=== PATIENT | male | born 1995 | race Caucasian/White ===

== ENCOUNTER 2022-02-06 10:17 | Inpatient (IN) | payer BC ==
[~2022-02-06] VITALS: Ht 165.1 cm; Wt 81.6 kg
[2022-02-06] MEDS ORDERED: LORazepam 2 MG/ML VIAL ONE (10:23)
[2022-02-06] MEDS ORDERED: HALOPERIDOL LACTATE 5 MG/ML VIAL ONE (10:24)
[2022-02-06] MEDS ORDERED: DIPHENHYDRAMINE INJ 50 MG/ML VIAL ONE (10:24)
--- NOTE | 2022-02-06 10:30 | NUR ---
Pt triaged and placed in rm 4 for eval. Report to Angel MENDIOLA.
[2022-02-06 10:36] VITALS: BP_SYST 110
[2022-02-06] MEDS ORDERED: NACL 0.9% 1,000 ML IV ONE ×2 (10:45→13:00)
[2022-02-06] MEDS ORDERED: LORazepam 2 MG/ML VIAL IM ONE (11:00)
--- NOTE | 2022-02-06 11:09 | NUR ---
PT WAS B/B AMBULANCE WITH [facility] VOILATED, AGRESSIVE. FIGHTING FOR THE MEDICAL STAFF. 4 POINT HARD RESTRAINT ON. DR. VELIZ EXAMINED PT. FIRST DOSE OF ATIVAN 2MG AND HALDOL 5MG AND BENADRYL 50MG PT WAS VIOLATING STILL. SECOND DOSE GIVEN. WORKED LITTLE BIT. KETAMINE 100MG IM ORDERED AND GIVEN AGAIN.
[2022-02-06] MEDS ORDERED: KETAMINE HCL 500 MG/10 ML VIAL IM ONE (11:15)
[2022-02-06] MEDS ORDERED: HALOPERIDOL LACTATE 5 MG/ML VIAL IM ONE (11:15)
[2022-02-06] MEDS ORDERED: KETAMINE HCL 500 MG/10 ML VIAL ONE (11:16)
--- NOTE | 2022-02-06 11:39 | NUR ---
PT FINALLY BECAME QUIETED DOWN AFTER KETAMINE GIVEN IM INJECTION. SL 20G ESTABLISHED ON LEFT FOOT. URINE WAS CAHTHED WELL.
[2022-02-06 11:40] LABS: BASOPHILS # (AUTO) 0.1 K/uL (0.0-0.2); BASOPHILS % (AUTO) 0.4 % (0.0-2.0); HEMOGLOBIN 14.7 g/dL (14.0-18.0); LYMPHOCYTES # (AUTO) 0.9 K/uL (1.0-5.5); LYMPHOCYTES % (AUTO) 5.4 % (20.5-51.5); MEAN CORPUSCULAR HEMOGLOBIN 28 pg (27-31); MEAN CORPUSCULAR HGB CONC 33 % (32-36); MEAN CORPUSCULAR VOLUME 84 fL (79.0-98.0); MONOCYTES # (AUTO) 1.6 K/uL (0.0-1.0); MONOCYTES % (AUTO) 9.6 % (1.7-9.3); NEUTROPHILS # (AUTO) 13.7 K/uL (1.8-7.7); NEUTROPHILS % (AUTO) 84.6 % (40.0-70.0); PLATELET COUNT (AUTO) 154 K/uL (130-430); RED BLOOD CELL COUNT(AUTO) 5.25 MIL/uL (4.2-6.2); RED CELL DISTRIBUTION WIDTH 12.9 % (9.0-15.0); WHITE BLOOD COUNT (AUTO) 16.2 K/uL (4.8-10.8)
[2022-02-06 11:46] LABS: ANION GAP 19 (5-15); CALCIUM 9.3 mg/dL (8.4-11.0); CHLORIDE 109 mmol/L (98-107); GLUCOSE 98 mg/dL (70-99); POTASSIUM 3.2 mmol/L (3.5-5.1); SODIUM SERUM 148 mmol/L (136-145); UREA NITROGEN, BLOOD 26 mg/dL (8-21)
[2022-02-06 11:49] LABS: GFR AFRICAN AMERICAN 64 mL/min (>90)
[2022-02-06 12:02] LABS: BILIRUBIN,URINE 1+ (NEGATIVE); BLOOD, URINE NEGATIVE (NEGATIVE); COLOR,URINE YELLOW (YELLOW); GLUCOSE,URINE NEGATIVE (NEGATIVE); KETONES,URINE 3+ (NEGATIVE); LEUKOCYTE ESTERASE ,URINE NEGATIVE (NEGATIVE); NITRITE, URINE NEGATIVE (NEGATIVE); PROTEIN URINE 2+ (NEGATIVE)
[2022-02-06 12:03] LABS: ALANINE AMINOTRANSFERASE 43 U/L (12-78); ALBUMIN 4.7 g/dL (3.4-4.8); ASPARTATE AMINOTRANSFERASE 53 U/L (10-37); TOTAL BILIRUBIN 1.5 mg/dL (0.0-1.0)
[2022-02-06 12:07] LABS: ACETAMINOPHEN < 1 ug/mL (1-30)
[2022-02-06 12:10] LABS: CLARITY/URINE HAZY (CLEAR)
[2022-02-06 12:11] LABS: RBC,URINE 0-3 /HPF (0-3)
[2022-02-06 12:12] LABS: BACTERIA,URINE FEW /HPF (None Seen); MUCUS,URINE 1+ /LPF (None Seen); WBC,URINE 0-3 /HPF (0-3)
[2022-02-06 12:21] LABS: BARBITURATE, URINE NEGATIVE (NEG <=200); BENZODIAZEPINE, URINE NEGATIVE (NEG <=150); CANNABINOID, URINE POSITIVE (NEG <=50); COCAINE, URINE NEGATIVE (NEG <=150); METHAMPHETAMINES SCREEN,URINE POSITIVE (NEG <=500); OPIATE, URINE NEGATIVE (NEG <=100); PHENCYCLIDINE SCREEN,URINE NEGATIVE (NEG <=25); UR TRICYCLIC ANTIDEPRESSANTS NEGATIVE (NEG <=300); URINE AMPHETAMINE NEGATIVE (NEG <=500); URINE METHADONE NEGATIVE (NEG <=200); URINE OXYCODONE SCREEN NEGATIVE (NEG <=100); URINE PROPOXYPHENE SCREEN NEGATIVE (NEG <=300)
[2022-02-06 13:58] LABS: CKMB RELATIVE INDEX 0.8 (0.0-2.9); CREATINE KINASE MB 13.7 ng/mL (0-3.6)
--- NOTE | 2022-02-06 15:00 | NUR ---
DR. NINA WAS CALLED AND ADMITED PT TO TELE.
[2022-02-06] MEDS ORDERED: LORazepam 2 MG/ML VIAL IM PRN (15:45)
--- NOTE | 2022-02-06 16:30 | NUR ---
PT GOT BED IN TELE 132B. PT'S NOSE SWAP FOR COVID WAS DONE BY JORDAN MENDIOLA AND SENT TO LAB.
[2022-02-06 17:25] LABS: CKMB RELATIVE INDEX 0.9 (0.0-2.9); CREATINE KINASE MB 35.1 ng/mL (0-3.6)
--- NOTE | 2022-02-06 18:00 | NUR ---
[place] sent to lab
--- NOTE | 2022-02-06 18:05 | NUR ---
LAB WAS UNABLE TO FIND NOSE SWAP FOR COVID. SECOND SAMPLE COLLECTED BY DIABETES CLINICAL MANAGER AND SENT TO LAB.
--- NOTE | 2022-02-06 19:00 | NUR ---
pt is sleeping
--- NOTE | 2022-02-06 19:02 | NUR ---
PT WAS SENT TO TELE 134 AFTER COVID 19 TEST DONE. NEGATIVE.
--- NOTE | 2022-02-06 19:15 | NUR ---
pt is sleeping
--- NOTE | 2022-02-06 19:26 | NUR ---
New admit from ER, came on the floor at around 1850. VSS stable, afebrile. END OF SHIFT REPORT GIVEN TO MAURY GRULLON. THANK YOU
--- NOTE | 2022-02-06 19:45 | NUR ---
pt is sleeping on his right side
--- NOTE | 2022-02-06 20:00 | NUR ---
pt still sleeping on his left side
--- NOTE | 2022-02-06 20:15 | NUR ---
PT is asleep
--- NOTE | 2022-02-06 21:10 | NUR ---
PT AWAKE SPEAKING WITH PATIENT
--- NOTE | 2022-02-06 21:15 | NUR ---
I BROUGHT SANDWICHES, MILK, JUICES AND WATER
--- NOTE | 2022-02-06 21:30 | NUR ---
PT DID NOT EAT HIS SNACKS HE WENT BACK TO SLEEP
--- NOTE | 2022-02-06 21:45 | NUR ---
patient is in bed
[2022-02-06] MEDS ORDERED: KCL 20 mEq in D5/0.45NS 1000mL 1,000 ML IV ONE (21:48)
[2022-02-06] MEDS: KCL 20 mEq in D5/0.45NS 1000mL 1,000 ML IV SCH (23:27)
--- NOTE | 2022-02-07 00:15 | NUR ---
PATIENT REFUSED VITAL SIGNS IT HE IS CONFUSED HE NOT MAKING ANY SENSE
[2022-02-07] MEDS: KCL 20 mEq in D5/0.45NS 1000mL 1,000 ML IV SCH ×4 (00:16→18:47)
[2022-02-07] MEDS: ENOXAPARIN SODIUM 30 MG/0.3 ML SYRINGE SUBCUT SCH ×2 (00:17→19:38)
--- NOTE | 2022-02-07 02:30 | NUR ---
SITTER: Sitter at bedside. Side rails up. patient is asleep at this time.
--- NOTE | 2022-02-07 03:15 | NUR ---
PATIENT RESTING: Patient resting quietly. No acute distress noted. .
--- NOTE | 2022-02-07 04:15 | NUR ---
SITTER: Sitter at bedside. Side rails up. patient pulled off lead while he was sleep.
[2022-02-07 04:35] VITALS: BP_SYST 134
--- NOTE | 2022-02-07 04:56 | NUR ---
MORNING CONSULT FOR DR. STEVEN I LEFT A MESSAGE FOR MARISOL IN MAIL BOX NUMBER I DIEL IS [phone] [employer] FEMALE VOICE SHE SAID HER NAME IS MARISOL
[2022-02-07 08:00] VITALS: BP_SYST 149
--- NOTE | 2022-02-07 08:00 | NUR ---
INITIAL NOTES Received report from [facility] shift nurse. Patient in bed, awake. Patient is AOx2. Patient confused and is calm at this moment. Vital signs obtained. Patient denies any pain. No distress noted. No s/s of SOB. SPo2 is at 100% on room air. Safety precautions in place.
--- NOTE | 2022-02-07 08:00 | NUR ---
patient allowed IV fluids to be administered.
[2022-02-07 08:17] LABS: BASOPHILS % (AUTO) 0.2 % (0.0-2.0); EOSINOPHILS # (AUTO) 0.2 K/uL (0.0-0.4); EOSINOPHILS % (AUTO) 1.8 % (0.0-4.0); HEMOGLOBIN 13.1 g/dL (14.0-18.0); LYMPHOCYTES # (AUTO) 1.7 K/uL (1.0-5.5); LYMPHOCYTES % (AUTO) 17.4 % (20.5-51.5); MEAN CORPUSCULAR HEMOGLOBIN 28 pg (27-31); MEAN CORPUSCULAR HGB CONC 34 % (32-36); MEAN CORPUSCULAR VOLUME 84 fL (79.0-98.0); MONOCYTES # (AUTO) 1.1 K/uL (0.0-1.0); MONOCYTES % (AUTO) 10.9 % (1.7-9.3); NEUTROPHILS # (AUTO) 6.8 K/uL (1.8-7.7); NEUTROPHILS % (AUTO) 69.7 % (40.0-70.0); PLATELET COUNT (AUTO) 106 K/uL (130-430); RED BLOOD CELL COUNT(AUTO) 4.65 MIL/uL (4.2-6.2); RED CELL DISTRIBUTION WIDTH 12.9 % (9.0-15.0)
--- NOTE | 2022-02-07 08:30 | NUR ---
patient done eating breakfast.
[2022-02-07 08:32] LABS: CALCIUM 7.9 mg/dL (8.4-11.0); CREATININE 0.78 mg/dL (0.55-1.30); POTASSIUM 3.1 mmol/L (3.5-5.1)
--- NOTE | 2022-02-07 08:45 | NUR ---
assisted patient on to use bed hawkins.
--- NOTE | 2022-02-07 09:00 | NUR ---
patient wanted to get cleaned, assisted patient with a bed bath. Changed the whole bed linen. Patient is calm. no distress during the bed bath or after.
--- NOTE | 2022-02-07 09:30 | NUR ---
patient in bed, resting. no distress noted.
--- NOTE | 2022-02-07 10:00 | NUR ---
patient watching some tv.
--- NOTE | 2022-02-07 10:30 | NUR ---
patient wants tv off, lights off. patient repositioning self in bed.
--- NOTE | 2022-02-07 11:00 | NUR ---
patient in bed. no distress noted. patient calm.
[2022-02-07 11:18] LABS: WHITE BLOOD COUNT (AUTO) 9.7 K/uL (4.8-10.8)
--- NOTE | 2022-02-07 11:40 | NUR ---
no distress noted. patient using urinal.
[2022-02-07 12:00] VITALS: BP_SYST 142
--- NOTE | 2022-02-07 12:30 | NUR ---
patient eating lunch.
[2022-02-07] MEDS ORDERED: POTASSIUM CHLORIDE 20 MEQ/PKT PACKET PO ONE (12:45)
--- NOTE | 2022-02-07 12:45 | NUR ---
SPOKE TO DR. IZQUIERDO ABOUT LOW POTASSIUM LAB VALUE. ORDERS RECEIVED.
--- NOTE | 2022-02-07 13:00 | NUR ---
PAGED DR. IZQUIERDO FOR LAB VALUE FOR PLATELETS. NO RESPONSE YET.
--- NOTE | 2022-02-07 13:00 | NUR ---
Patient in bed, calm.
[2022-02-07] MEDS ORDERED: DIPHENHYDRAMINE INJ 50 MG/ML VIAL IM PRN (14:15)
--- NOTE | 2022-02-07 14:20 | NUR ---
Patient states feeling nervous and having anxiety. Patient is moving around in the bed a lot. Offered medication to help with anxiety, patient said okay, but when I got the medication and informed him that it was an injection patient stated "do not want an injection." Charge nurse in the room, when patient decline IM medication.
[2022-02-07] MEDS ORDERED: OLANZapine 5 MG TABLET PO PRN (14:30)
[2022-02-07] MEDS ORDERED: DIPHENHYDRAMINE HCL 12.5 MG/5 ML UDC PO PRN (14:30)
[2022-02-07] MEDS ORDERED: LORazepam 1 MG TABLET PO PRN (14:30)
--- NOTE | 2022-02-07 14:30 | NUR ---
DR. Smith came in to see the patient. Orders received.
--- NOTE | 2022-02-07 15:30 | NUR ---
Gave Ativan PO, patient states still nervous. Continuing to monitor. Patient in bed, singing.
[2022-02-07 16:00] VITALS: BP_SYST 152
--- NOTE | 2022-02-07 16:15 | NUR ---
PATIENT IS SELF REPOSITIONING IN BED. NO S/S PAIN. NO SOB. PATIENT IS A CALMER SINCE MEDICATION GIVEN.
--- NOTE | 2022-02-07 17:16 | NUR ---
PATIENT IS IN BED, CALM AND RESTING.
--- NOTE | 2022-02-07 17:41 | NUR ---
PATIENT RESTING IN BED. NO DISTRESS. NO PAIN.
--- NOTE | 2022-02-07 18:30 | NUR ---
PATIENT FINISH EATING DINNER. PATIENT ATE WELL. NO DISTRESS AT THIS TIME.
--- NOTE | 2022-02-07 18:30 | NUR ---
NOTES HAVE NOT HEARD BACK FROM DR. IZQUIERDO, REGARDING PLATELETS. WILL ENDORSE TO INCOMING NURSE.
--- NOTE | 2022-02-07 19:00 | NUR ---
PATIENT RESTING, EYES CLOSED.
--- NOTE | 2022-02-07 19:01 | NUR ---
CLOSING NOTE PATIENT RESTING. NO DISTRESS NOTED. NO SOB. GAVE REPORT TO INCOMING NURSE, IRINA. SAFETY PRECAUTIONS IN PLACE AND CALL LIGHT WITHIN REACH.
--- NOTE | 2022-02-07 19:30 | NUR ---
SITTER PATIENT SITTING UP IN BED PULLING ON COVERS AND TUBING NOT HARD ENOUGH TO PULL OUT. HE HAS LITTLE KNOWLEDGE OF HOW IS GOT TO THE HOSPITAL. PATIENT REMAINED IN EYE SIGHT WITH 3 SIDE RAILS UP AND BED AT LOWEST SETTING. CALL LIGHT WITHIN REACH.
[2022-02-07 20:00] VITALS: BP_SYST 124
--- NOTE | 2022-02-07 20:00 | NUR ---
SITTER VITALS TAKEN AND RECORDED. PATIENT IS MORE TALKATIVE WITH STAFF BUT UNABLE TO GIVE MUCH INFORMATION DUE TO CONFUSION. PATIENT REMAINED IN EYE SIGHT WITH 3 SIDE RAILS UP AND BED AT LOWEST SETTING. CALL LIGHT WITHIN REACH.
--- NOTE | 2022-02-07 20:30 | NUR ---
SITTER PATIENT COMPLETED ORAL CARE WITH NO ASSISTANTS NEEDED. HE WATCHED SOME T.V. NOTICED HIM HITTING SIDE TABLE WITH LITTLE FORCE ASKED TO STOP AND HE DID. PATIENT REMAINED IN EYE SIGHT WITH 3 SIDE RAILS UP AND BED AT LOWEST SETTING. CALL LIGHT WITHIN REACH.
--- NOTE | 2022-02-07 21:00 | NUR ---
SITTER PATIENT USED URINAL WITH NO ISSUES. HE THEN COVED HIMSELF AND IS NOW RESTING. PATIENT REMAINED IN EYE SIGHT WITH 3 SIDE RAILS UP AND BED AT LOWEST SETTING. CALL LIGHT WITHIN REACH.
--- NOTE | 2022-02-07 22:00 | NUR ---
SITTER PATIENT FELL ASLEEP FOR A HOUR. NO ISSUE NOTED. PATIENT REMAINED IN EYE SIGHT WITH 3 SIDE RAILS UP AND BED AT LOWEST SETTING. CALL LIGHT WITHIN REACH.
--- NOTE | 2022-02-07 23:00 | NUR ---
SITTER PATIENT ASKED IF HE WAS ABLE TO HAVE PAPER AND A PENCIL AND ONE WAS PROVIDED TO HIM. HE KATHIE AND WAS WRITING NOTES. THE NEWS WAS ON T.V AND HE BECAME UPSET ABOUT TOPICS CHANNEL WAS CHANGED AND HE CALMED DOWN WITH VERBAL PROMPS. PATIENT REMAINED IN EYE SIGHT WITH 3 SIDE RAILS UP AND BED AT LOWEST SETTING. CALL LIGHT WITHIN REACH.
[2022-02-08] VITALS: BP_SYST 134
--- NOTE | 2022-02-08 01:00 | NUR ---
patient asleep patient is currently asleep with noted signs of distress noted. he was noted to be moving around the bed alot. he also changed the t.v to watch pentecostalism. PATIENT REMAINED within IN EYE SIGHT WITH 3 SIDE RAILS UP AND BED AT LOWEST SETTING. CALL LIGHT WITHIN REACH.
--- NOTE | 2022-02-08 02:30 | NUR ---
SITTER PATIENT WANTED TO BRUSH HIS TEETH AGAIN ITEMS NEEDED WERE GIVEN TO HIM. PATIENT STATED THAT HE NEEDED TO BRUSH HIS TEETH BEFORE HE TRIED TO FALL ASLEEP AGAIN. PATIENT REMAINED IN EYE SIGHT WITH 3 SIDE RAILS UP AND BED AT LOWEST SETTING. CALL LIGHT WITHIN REACH.
--- NOTE | 2022-02-08 03:00 | NUR ---
SITTER PATIENT STATES THAT HE CANT SLEEP THAT IT IS TOO NOISY WITH THE PHONE AND CALL LIGHTS GOING OFF. HE WATCHED T.V AND WAS DRAWING. PATIENT REMAINED IN EYE SIGHT WITH 3 SIDE RAILS UP AND BED AT LOWEST SETTING. CALL LIGHT WITHIN REACH.
--- NOTE | 2022-02-08 04:00 | NUR ---
PATIENT RESTLESS PATIENT NOTED TO BE VERY RESTLESS STATING THAT HE WANTS TO GO HOME AND WANT TO KNOW WHEN HE CAN LEAVE. INFORMED OF 5150 STATUS AND HE STATED THAT HE HAS BEEN HOSPITALIZED BEFORE FOR THE SAME REASON.
[2022-02-08] MEDS: KCL 20 mEq in D5/0.45NS 1000mL 1,000 ML IV SCH (05:37)
--- NOTE | 2022-02-08 05:43 | NUR ---
sitter patient is becoming increasingly emotional with period of crying and laughing. He stayed in bed and did not become combative. PATIENT REMAINED IN EYE SIGHT WITH 3 SIDE RAILS UP AND BED AT LOWEST SETTING. CALL LIGHT WITHIN REACH.
--- NOTE | 2022-02-08 06:14 | NUR ---
SITTER PATIENT ASKED FOR A BIBLE AND WAS GIVEN ONE. HE IS STILL NOTED TO HE VERY EMOTIONAL CRYING ON AND OFF. PATIENT WAS GIVEN TIME TO TALK ABOUT HIS FEELINGS AND WHY HE IS CRYING. PATIENT REMAINED WITHIN EYE SIGHT WITH 3 SIDE RAILS UP AND BED AT LOWEST SETTING. CALL LIGHT WITHIN REACH.
--- NOTE | 2022-02-08 06:46 | NUR ---
CLOSING NOTES PATIENT RESTING IN BED READING THE BIBLE. PATIENT WANTED TO MAKE SURE THAT IT WAS KNOWN THAT HE COMES FROM A GOOD HOME AND THAT HE DOES HAVE SOMEONE TO PICK HIM UP WHEN HE IS DISCHARGED. PATIENT REMAINED IN EYE SIGHT WITH 3 SIDE RAILS UP AND BED AT LOWEST SETTING. CALL LIGHT WITHIN REACH.
[2022-02-08 07:15] LABS: BASOPHILS % (AUTO) 0.3 % (0.0-2.0); EOSINOPHILS # (AUTO) 0.2 K/uL (0.0-0.4); EOSINOPHILS % (AUTO) 3.1 % (0.0-4.0); HEMATOCRIT 39.7 % (36-54); HEMOGLOBIN 13.4 g/dL (14.0-18.0); LYMPHOCYTES # (AUTO) 1.5 K/uL (1.0-5.5); LYMPHOCYTES % (AUTO) 22.5 % (20.5-51.5); MEAN CORPUSCULAR HEMOGLOBIN 28 pg (27-31); MEAN CORPUSCULAR HGB CONC 34 % (32-36); MEAN CORPUSCULAR VOLUME 83 fL (79.0-98.0); MONOCYTES # (AUTO) 0.8 K/uL (0.0-1.0); MONOCYTES % (AUTO) 11.6 % (1.7-9.3); NEUTROPHILS # (AUTO) 4.1 K/uL (1.8-7.7); NEUTROPHILS % (AUTO) 62.5 % (40.0-70.0); PLATELET COUNT (AUTO) 95 K/uL (130-430); RED BLOOD CELL COUNT(AUTO) 4.79 MIL/uL (4.2-6.2); RED CELL DISTRIBUTION WIDTH 13.2 % (9.0-15.0); WHITE BLOOD COUNT (AUTO) 6.5 K/uL (4.8-10.8)
[2022-02-08 07:20] LABS: CALCIUM 7.6 mg/dL (8.4-11.0); CREATININE 0.72 mg/dL (0.55-1.30); POTASSIUM 3.3 mmol/L (3.5-5.1)
--- NOTE | 2022-02-08 08:00 | NUR ---
Initial Notes Patient in bed, awake, confused. No s/s of distress noted. Breathing is even and non labored. Spo2 is at 97% on room air. Patient is eating breakfast. Denies any pain. Safety precautions in place. Sitter present. will continue to monitor.
[2022-02-08 09:11] LABS: CKMB RELATIVE INDEX 0.2 (0.0-2.9)
[2022-02-08 11:32] VITALS: BP_SYST 139
--- NOTE | 2022-02-08 12:00 | NUR ---
Notes Patient states "feels a little confused and anxious, but less than yesterday." Does not want anxiety medication. no s/s of distress noted. Denies any pain. breathing is even and non labored. Safety precautions in place and sitter present.
[2022-02-08] MEDS ORDERED: POTASSIUM CHLORIDE 20 MEQ/PKT PACKET PO ONE (12:45)
--- NOTE | 2022-02-08 13:10 | NUR ---
MD Called and spoke to Dr. Tavera, informed of potassium level, orders received. Informed of low platelets, per MD, hold Lovenox. Request social sciences department chair for patient to be transferred to [place].
--- NOTE | 2022-02-08 13:20 | NUR ---
Finance Professional TILE CONDUIT LAYER introduced self to pt. who was spoke softly, maintained eye contact and was able to carry on with a conversation. Pt. stated he was scared. TILE CONDUIT LAYER offered reassurance that he was in the right place and the doctors goal is to get him stable. Pt. stated he was not doing well, "I have lost all sense of reality". Pt. continued, " Sometimes I am clear, keen and can articulate. Other times I feel blind, deaf, dumb and slow." Pt. admitted to being diagnosed with Bipolar in 2017, was prescribed meds, but did not like the side effects. His psychiatrist is Dr. Lyon with [facility]. Pt. stated Dr. Lyon is not receptive when pt. shares with him he does not like the meds he is on. He also has not had an in-person apt. with Dr. Lyon, something he really wants to see happen. Pt. also stated he has a therapist, Sameera ,but has not seen her in 2 years. Pt. stated he is on his step-dad's insurance, "Blue Cross or Blue Shield". At times pt. would speak of subject and mentioned he and step dad Rajendra were invited to [facility] in [place] and he can "Distinctly recall being underwater". TILE CONDUIT LAYER asked if that could have been a hinduism. Pt. stated it could have been. Pt. stated after this hinduism, his life began to go downhill, but did not elaborate. A couple of times, pt. was mouthing words as if he was afraid to speak out. TILE CONDUIT LAYER reassured him he was in a safe place and he could speak freely. Pt. was concerned for absences from work and wanted to work on obtaining phone privileges. TILE CONDUIT LAYER shared with pt. a facility like [facility] can help get him stable on meds. Pt. was in agreement and confirmed he had been at [facility] and [facility] in the past. TILE CONDUIT LAYER will check in on pt. tomorrow. TILE CONDUIT LAYER sent a packet to [facility].
[2022-02-08 15:55] VITALS: BP_SYST 146
--- NOTE | 2022-02-08 16:00 | NUR ---
NOTES PATIENT IN BED, RESTING. NO S/S OF DISTRESS. PATIENT STILL CONFUSED BUT IS CALM AT THIS TIME. NO COMPLAINTS OF PAIN. SAFETY PRECAUTIONS IN PLACE AND CALL LIGHT WITHIN REACH. SITTER PRESENT.
[2022-02-08] MEDS ORDERED: LORA-259 PO (16:14)
[2022-02-08] MEDS ORDERED: DIPH25CA83 PO (16:15)
[2022-02-08] MEDS ORDERED: OLAN5TAB3 PO (16:16)
[2022-02-08 17:50] VITALS: BP_SYST 133
--- NOTE | 2022-02-08 19:00 | NUR ---
DISCHARGE Patient discharged and transferred to [facility]. Exit Care provided. Patient aware of transfer, patient's mom was notified. Patient verbalized understanding. Patient was transported via gurney. Patient in confused and calm, ID band removed. IV catheter removed, intact and dressing applied, no active bleeding. Rx of given. Patient educated on pain management. All discharge and transfer paperwork given to EMS. Medication reconciliation given. Patient denied any pain. All belongings sent with patient.
== END 2022-02-08 19:00 | DRG 683 ==
LOC: SED 10:17 → STU 14:53
PROVIDERS: ADMIT Family Medicine; ATTEND Family Medicine
DX: N17.9 Acute kidney failure, unspecified (principal); M62.82 Rhabdomyolysis; F23 Brief psychotic disorder; E86.0 Dehydration; F41.9 Anxiety disorder, unspecified; F17.210 Nicotine dependence, cigarettes, uncomplicated; F12.20 Cannabis dependence, uncomplicated; Z20.822 Contact with and (suspected) exposure to COVID-19
CPT/HCPCS: 36415; 80048; 80053; 80307; 81000; 82550; 82553; 83735; 85025; 93005; 96360; 96361; 96372; 99291; G0378; G0480; G0481; J1200; J1630; J1650; J2060; J7030